=== PATIENT | male | born 1985 | race American Indian/Alaskan Native ===

== ENCOUNTER 2019-06-29 17:08 | Emergency (ER) | payer OTHER ==
[2019-06-29] MEDS ORDERED: Ketamine 500 mg/10 ML MDV IV ONE (17:09)
[2019-06-29] MEDS ORDERED: Propofol 200 MG/20 ML SDV IV ONE (17:09)
[2019-06-29] MEDS ORDERED: Midazolam 1 MG/ML 2 ML SDV IV ONE (17:09)
--- NOTE | 2019-06-29 19:42 | EDM.PDOC ---
ED HPI GENERAL MEDICAL PROBLEM - General Chief Complaint: Upper Extremity Injury/Pain Stated Complaint: LT SHOULDER DISLOCATED Time Seen by Provider: 06/29/19 17:15 Source of Information: Reports: Patient History Limitations: Reports: No Limitations - History of Present Illness INITIAL COMMENTS - FREE TEXT/NARRATIVE: Patient is a 33 YO M who presented to the ED because of a left shoulder pain. He tripped and fell,landed on his left shoulder. He rates the pain 10/10 and has limited movement of the LUE. - Related Data Allergies Allergy/AdvReac Type Severity Reaction Status Date / Time metformin Allergy Diarrhea Verified 06/29/19 19:41 Review of Systems - Review of Systems Review Of Systems: See Below Constitutional: Reports: No Symptoms Eyes: Reports: No Symptoms Ears: Reports: No Symptoms Nose: Reports: No Symptoms Mouth/Throat: Reports: No Symptoms Respiratory: Reports: No Symptoms Cardiovascular: Reports: No Symptoms GI/Abdominal: Reports: No Symptoms Musculoskeletal: Reports: Other (left shoulder pain) Neurological: Reports: No Symptoms ED EXAM, GENERAL - Physical Exam Exam: See Below Exam Limited By: No Limitations General Appearance: Alert, No Apparent Distress Nose: Normal Inspection, Normal Mucosa, No Blood Throat/Mouth: Normal Inspection, Normal Lips, Normal Teeth Head: Atraumatic, Normocephalic Neck: Normal Inspection, Supple, Non-Tender Respiratory/Chest: No Respiratory Distress, Lungs Clear, Normal Breath Sounds, No Accessory Muscle Use Cardiovascular: Normal Peripheral Pulses, Regular Rate, Rhythm, No Edema, No JVD , No Murmur, No Rub GI/Abdominal: Normal Bowel Sounds, Non-Tender, No Organomegaly, No Distention, No Abnormal Bruit (Male) Exam: No Hernia, Normal Inspection, Normal Prostate Back Exam: Normal Inspection, Full Range of Motion Extremities: Other (left shoulder tenderness) Course - Vital Signs Text/Narrative:: xray left shoulder-anterior dislocation patient was sedated per [employer]-see notes The shoulder was reduced manually and was successful. Repeat xray was normal. He was put on arm arm sling and is pain free upon discharge. Last Recorded V/S: Last Vital Signs Temp 36.4 C 06/29/19 17:15 Pulse 108 H 06/29/19 17:15 Resp 15 06/29/19 17:15 BP 147/93 H 06/29/19 17:15 Pulse Ox 100 06/29/19 17:15 - Orders/Labs/Meds Meds: Medications Discontinued Medications Generic Name Dose Route Start Last Admin Trade Name Elizabeth PRN Reason Stop Dose Admin Ketamine HCl 5 mg 06/29/19 17:09 Ketalar IV 06/29/19 17:10 .STK-MED ONE Midazolam HCl 3 mg 06/29/19 17:09 Versed 1 Mg/Ml IV 06/29/19 17:10 .STK-MED ONE Propofol 30 mg 06/29/19 17:09 Diprivan 20 Ml IV 06/29/19 17:10 .STK-MED ONE Departure - Departure Time of Disposition: 19:40 Disposition: Home, Self-Care 01 Condition: Good Clinical Impression: Dislocation, shoulder, anterior - Discharge Information *PRESCRIPTION DRUG MONITORING PROGRAM REVIEWED*: No *COPY OF PRESCRIPTION DRUG MONITORING REPORT IN PATIENT YOLIS: No Instructions: Shoulder Dislocation, [id number] Referrals: PCP,Not In Area [Primary Care Provider] - Forms: ED Department Discharge Additional Instructions: Please read discharge instructions on shoulder dislocation apply ice you can remove the arm sling after 1 day take ibuprofen 800 mg with tylenol 1000 mg ever 8 hours as needed for pain follow up as needed
--- NOTE | 2019-06-30 11:05 | CR ---
INDICATION: Left shoulder pain - playing at playground and tried to catch himself. LEFT SHOULDER: Three views of the left shoulder revealed anterior inferior dislocation of the humerus with respect to the glenoid. A definite fracture site was not identified. Adjacent ribs and lung appeared unremarkable. IMPRESSION: Anterior inferior dislocation at the glenohumeral joint. MTDD
--- NOTE | 2019-06-30 11:07 | CR ---
INDICATION: Post reduction left shoulder, post dislocation. LEFT SHOULDER: Frontal and lateral views of the left shoulder revealed no evidence of a fracture or dislocation, the previous anterior inferior dislocation at the glenohumeral joint having been reduced. BALDEV
== END 2019-06-29 20:00 | disposition home or self-care (01) ==
LOC: FB.ED 17:08
DX: S43.005A Unspecified dislocation of left shoulder joint, initial encounter (principal); Z88.8 Allergy status to other drugs, medicaments and biological substances; W01.0XXA Fall on same level from slipping, tripping and stumbling without subsequent striking against object, initial encounter
CPT/HCPCS: 73020-LT; 73030-LT; 82962; 96374; 96375; 99284-25; J2250; J2704